=== PATIENT | female | born 1975 | race Caucasian/White ===

== ENCOUNTER → 2018-09-30 | Outpatient (CLI) | payer OTHER ==
[~2018-09-30] MED LIST: ALBU90OI INH; Antivert25 MG PO; Ativan1 MG PO; BGALA3.3 PO; CIPR500 PO; CYCL10 PO; Dairy Relie3000 UNIT PO; ENAL20 PO; Enalapril-Hctz1 EACH; GABA300 PO; GLYDO11 ML; MECL25 PO; METO50ER PO; MORP15ER PO; Mobic15 MG PO; ONDA4 PO; OXYACE7.5T PO; OXYC10TA19; PRAV20 PO; PROM25 PO; Ultram50 MG PO; VICODIN 5-3001 EACH PO; Zofran8 MG PO
== END | disposition home or self-care (01) ==
LOC: LAB 09:01 → LAB SHORT 09:01
DX: N39.0 Urinary tract infection, site not specified (principal)
CPT/HCPCS: 87086